=== PATIENT | male | born 1940 | race Caucasian/White ===

== ENCOUNTER 2024-06-03 11:09 | Emergency (ER) | payer MEDICARE, SELFPAY ==
[2024-06-03 11:15] VITALS: BP 121/76; PULSE 94; RESP 16; TEMP 36.8; O2SAT 96; BMI 36.6
--- NOTE | 2024-06-03 11:17 | XR_ITS ---
WS: [id number] Examination: XR chest 1V portable [id number] Reason for Exam: cough Date: 06/03/2024 Comparison: 12/31/2016 Findings: The heart is enlarged. There is no overt failure or large pleural effusion. No dense consolidation is identified. Previous lower cervical surgical changes are noted. XR/XR chest 1V portable [id number] Impression: The heart is prominent in size. There is no failure or consolidation
--- NOTE | 2024-06-03 11:25 | ED_ITS ---
HPI - COVID 2 General: Chief Complaint: COVID symptoms Stated Complaint: Cough, swelling and drainage of eyes Time Seen by Provider: 06/03/24 11:21 Source: patient Mode of arrival: ambulatory Limitations: no limitations History of Present Illness: 83-year-old male states that over the st week he has been having cough congestion watery red eyes. He states he has had allergies in the past this time the year. He had some mild headaches as well states he had some slight phlegm production with his cough he denies any severe shortness of breath denies any fever COVID 19 common symptoms: positive productive cough; negative fever(s), chills, dyspnea, body aches, headache(s), throat pain, nausea, vomiting or diarrhea COVID 19 other sytmptoms: negative chest pain COVID Results: 2 SARS-CoV-2 Antigen (Rapid) Negative (Negative) 06/03/24 11:25 Related Data Home Medications Medication Instructions Recorded Confirmed apixaban 5 mg tablet (Eliquis) 5 mg PO BID 05/17/21 07/23/22 diltiazem HCl 30 mg tablet 30 mg PO BID 05/17/21 07/23/22 Allergies Allergy/AdvReac Type Severity Reaction Status Date / Time No Known Allergies Allergy Verified 06/03/24 11:20 Review of Systems 2 Const: Denies: fever(s), chills, body aches or change in appetite Eyes: Reports: eye redness ENMT: Denies: throat pain or dental pain Card: Denies: chest pain Resp: Reports: productive cough; Denies: dyspnea GI: Denies: abdominal pain, nausea, vomiting or diarrhea Musc: Denies: neck pain or back pain Skin/Breast: Denies: rash Neuro: Denies: headache(s) PFSH ED 2 PFSH: Medical History Afib Social History Smoking and tobacco/nicotine status: never used tobacco/nicotine Alcohol intake: never Substance/Drug Use: never Adopted: No Caregiver/support person: No Lives independently: No Household members: spouse Marital status: service: No Current occupational status: retired Sexually active: Yes Do you think of yourself as: Straight/Heterosexual Current gender identity: Male Physical Exam 2 Const: COMMON NORMALS: no acute distress, patient oriented x3 and healthy appearing HENMT: COMMON NORMALS: normocephalic and atraumatic HEAD & SCALP: n ormocephalic and atraumatic Eye: OTHER: Erythema clear discharge from bilateral eyes likely allergic Neck/C-Spine: COMMON NORMALS: full ROM and supple Chest: COMMONS NORMALS: normal inspection of the chest and normal palpation of entire chest wall Resp: COMMON NORMALS: normal respiratory effort, No retractions, No use of accessory muscles and clear to auscultation bilaterally AUSCULTATION: clear to auscultation bilaterally Cardio: COMMON NORMALS: regular rate, regular rhythm and No murmurs present (Cardio) RATE: regular rate RHYTHM: regular rhythm GI: COMMON NORMALS: Normal to inspection, nondistended, normoactive bowel sounds present, Soft to palpation, non-tender and no masses PALPATION: Yes Soft to palpation Extremity: COMMON NORMALS: normal to inspection and full ROM Neuro: COMMON NORMALS: patient oriented x3, moves all extremities and no focal motor deficits Psych: COMMON NORMALS: mental status grossly normal, Normal thought process present and cooperative THOUGHT PROCESS: Normal thought process present Skin: COMMON NORMALS: no rashes or lesions noted and no wounds GENERAL SKIN EXAM: no rashes or lesions noted Course 2 Vital Signs: Vital signs: Vital Signs Temperature 98.3 F 06/03/24 11:15 Pulse Rate 84 06/03/24 13:24 Respiratory Rate 20 H 06/03/24 13:24 Blood Pressure 125/82 06/03/24 13:24 Pulse Oximetry 91 06/03/24 13:24 Oxygen Delivery Me thod Room Air 06/03/24 12:53 MDM - COVID Medical Decision Making Patient presents here with likely upper respiratory infection along with allergies with a cough and allergic conjunctivitis he is to do antihistamine eyedrops [id number] did give him Decadron here is no signs of pneumonia is well-appearing here in no distress she stable for discharge follow-up with PCP return if worsening. Medical Records I reviewed the patient's medical records. Lab Data I reviewed the patient's lab results. 06/03/24 11:55 06/03/24 11:55 Radiology Impressions Chest X-Ray 06/03/24 11:17 Impression: The heart is prominent in size. There is no failure or consolidation Laboratory Results WBC 7.98 10^3/uL (3.29-11.43) 06/03/24 11:55 RBC 4.57 10^6/uL (3.85-5.65) 06/03/24 11:55 Hgb 14.50 g/dL (11.27-16.99) 06/03/24 11:55 Hct 43.4 % (37-53) 06/03/24 11:55 MCV 95.0 fl (82-101) 06/03/24 11:55 MCH 31.7 pg (27-33) 06/03/24 11:55 MCHC 33.4 g/dL (30-55) 06/03/24 11:55 RDW 12.2 % (12.1-15.1) 06/03/24 11:55 Plt Count 240 10^3/cmm (157-399) 06/03/24 11:55 MPV 8.8 fL (7.4-10.4) 06/03/24 11:55 Neut % (Auto) 74.9 % 06/03/24 11:55 Lymph % (Auto) 11.5 % 06/03/24 11:55 Phelps % (Auto) 12.3 % 06/03/24 11:55 Eos % (Auto) 0.4 % 06/03/24 11:55 Baso % (Auto) 0.4 % 06/03/24 11:55 Neut # (Auto) 5.98 10^3/uL (1.8-7.7) 06/03/24 11:55 Lymph # (Auto) 0.9 10^3/uL (0.8-4.8) 06/03/24 11:55 Phelps # (Auto) 1.0 10^3/uL (0.2-0.9) H 06/03/24 11:55 Eos # (Auto) 0.0 10^3/uL (0.0-0.8) 06/03/24 11:55 Baso # (Auto) 0.0 10^3/uL (0.0-0.1) 06/03/24 11:55 Nucleated RBC % (auto) 0 % 06/03/24 11:55 Nucleated RBCs # 0.0 /100WBC 06/03/24 11:55 Sodium 139 mmol/L (136-145) 06/03/24 11:55 Potassium 4.2 mmol/L (3.5-5.1) 06/03/24 11:55 Chloride 101 mmol/L (98-107) 06/03/24 11:55 Carbon Dioxide 27 mmol/L (22-29) 06/03/24 11:55 Anion Gap 15.2 (5-19) 06/03/24 11:55 BUN 16 mg/dL (8-23) 06/03/24 11:55 Creatinine 0.9 mg/dL (0.7-1.2) 06/03/24 11:55 GFR Calculation Not Reportable 06/03/24 11:55 Glucose 104 mg/dL (65-115) 06/03/24 11:55 Calculated Osmolality 289 mOsm/kg (285-295) 06/03/24 11:55 Calcium 9.2 mg/dL (8.5-10.5) 06/03/24 11:55 Total Bilirubin 0.7 mg/dL (0.15-1.2) 06/03/24 11:55 AST 21 U/L (0-40) 06/03/24 11:55 ALT 19 U/L (0-41) 06/03/24 11:55 Alkaline Phosphatase 81 U/L (40-130) 06/03/24 11:55 NT-Pro-B Natriuret Pep 1424 pg/mL (0-450) H 06/03/24 11:55 Total Protein 6.7 g/dL (6.6-8.7) 06/03/24 11:55 Albumin 4.0 g/dL (3.5-5.2) 06/03/24 11:55 Globulin 2.7 g/dL (1.3-4.6) 06/03/24 11:55 SARS-CoV-2 Ag (Rapid) Negative (Negative) 06/03/24 11:25 2 SARS-CoV-2 Antigen (Rapid) Negative (Negative) 06/03/24 11:25 All radiology interpretation(s) finalized by discharge Discharge Plan Discharge Patient Disposition: Home Clinical Impression: Upper respiratory infection, Environmental allergies Condition: Stable Prescriptions: No Action Eliquis 5 mg tablet 5 mg PO BID diltiazem HCl 30 mg tablet 30 mg PO BID Discharge Orders: Discharge ED (Routine); Ordered 06/03/24 Ordered By: Carolin Mcgill Referrals: Roberta Schwarz FNP [Primary Care Provider] - 4-7 days Discharge Diet: Advance as tolerated Discharge Activity: Resume usual activity Patient Instructions: Upper Respiratory Infection (ED), Allergies (ED) Coding Level of Care Code ED Lead [employer] for Afshan Dhaliwal
[2024-06-03] MEDS: dexamethasone 10 mg/mL INJ IVP (11:52)
[2024-06-03 11:57] LABS: SARS Covid-2 Antigen Negative (Negative)
[2024-06-03 12:05] LABS: Basophils % 0.4 %; Eosinophils % 0.4 %; Hematocrit 43.4 % (37-53); Lymphocytes # 0.9 10^3/uL (0.8-4.8); Lymphocytes % 11.5 %; Mean Corpuscular HGB Conc 33.4 g/dL (30-55); Mean Corpuscular Hemoglobin 31.7 pg (27-33); Mean Platelet Volume 8.8 fL (7.4-10.4); Monocytes % 12.3 %; Neutrophils # 5.98 10^3/uL (1.8-7.7); Neutrophils % 74.9 %; Nucleated Red Blood Cells % 0 %; Platelet Count 240 10^3/cmm (157-399); Red Blood Count 4.57 10^6/uL (3.85-5.65); Red Cell Distribution Width 12.2 % (12.1-15.1); White Blood Count 7.98 10^3/uL (3.29-11.43)
[2024-06-03 12:31] LABS: Alanine Aminotransferase 19 U/L (0-41); Alkaline Phosphatase 81 U/L (40-130); Anion Gap 15.2 (5-19); Aspartate Amino Transferase 21 U/L (0-40); Blood Urea Nitrogen 16 mg/dL (8-23); Calcium 9.2 mg/dL (8.5-10.5); Carbon Dioxide 27 mmol/L (22-29); Chloride 101 mmol/L (98-107); Globulin 2.7 g/dL (1.3-4.6); Glucose 104 mg/dL (65-115); NT Pro B Type Natriuretic Pept 1424 pg/mL (0-450); Osmolality Calculated 289 mOsm/kg (285-295); Potassium 4.2 mmol/L (3.5-5.1); Sodium 139 mmol/L (136-145); Total Bilirubin 0.7 mg/dL (0.15-1.2); Total Protein 6.7 g/dL (6.6-8.7)
[2024-06-03 12:53] VITALS: BP 125/82; PULSE 89; RESP 16; O2SAT 95
[2024-06-03 13:24] VITALS: BP 125/82; PULSE 84; RESP 20; O2SAT 91
== END 2024-06-03 13:25 | disposition home or self-care (01) ==
PROVIDERS: Emergency Provider Emergency Medicine; Family Provider Nurse Practitioner Family; PCP Nurse Practitioner Family
DX: J06.9 Acute upper respiratory infection, unspecified (principal); T78.49XA Other allergy, initial encounter; X58.XXXA Exposure to other specified factors, initial encounter; Z11.52 Encounter for screening for COVID-19
CPT/HCPCS: 71045; 80053; 83880; 85025; 87426; 96374; 99284; J1100